=== PATIENT | female | born 1950 | race Caucasian/White ===

== ENCOUNTER 2020-07-06 14:09 | Outpatient (CLI) | payer MEDICARE, SELFPAY ==
--- NOTE | ~2020-07-06 | MM_ITS ---
EXAMINATION: MM screening thao BI w ramandeep HISTORY: Screening mammogram, family history of breast cancer in her mother. TECHNIQUE: Craniocaudal and mediolateral oblique 3-D tomosynthesis images were obtained and synthetic 2-D images were generated. CAD analysis was submitted and interpreted. COMPARISON: No prior mammogram is available for comparison at this institution. BREAST PARENCHYMAL COMPOSITION: The breasts are almost entirely fatty. FINDINGS: RIGHT BREAST: There is focal asymmetry in the upper outer quadrant of the right breast. LEFT BREAST: There is no evidence of suspicious mass, calcification, or architectural distortion to s uggest malignancy. IMPRESSION: 1. Focal asymmetry of the right breast which may represent the patient's baseline however no comparis on is currently available. 2. Comparison with prior mammograms is necessary. BI-RADS Category 0: Incomplete: Needs comparison with prior mammograms. Reviewed, dictated and finalized at location A. CHOOL ASSOCIATE TEACHER IMPRESSION: 1. Focal asymmetry of the right breast which may represent the patient's baseli ne however no comparison is currently available. 2. Comparison with prior mammograms is necessary. BI-RADS Category 0: Incomplete: Needs comparison with prior mammograms.
== END 2020-07-06 14:10 | disposition home or self-care (01) ==
DX: Z12.31 Encounter for screening mammogram for malignant neoplasm of breast (principal); R92.8 Other abnormal and inconclusive findings on diagnostic imaging of breast
CPT/HCPCS: 77063; 77067

== ENCOUNTER 2021-09-28 08:04 | Outpatient (CLI) | payer MEDICARE, SELFPAY ==
--- NOTE | ~2021-09-28 | MM_ITS ---
EXAMINATION: MM screening thao BI w ramandeep HISTORY: Screening mammogram, family history of breast cancer in her mother. TECHNIQUE: Craniocaudal and mediolateral oblique 3-D tomosynthesis images were obtained and synthetic 2-D images were generated. CAD analysis was submitted and interpreted. COMPARISON: 07/06/2020, 03/25/2019 BREAST PARENCHYMAL COMPOSITION: The breasts are almost entirely fatty. FINDINGS: There is no suspicious mass, calcification, or architectural distortion to suggest malignan cy in either breast. There has been no suspicious interval change. IMPRESSION: 1. No mammographic evidence of malignancy. 2. Recommend routine screening mammography in one year. BI-RADS Category 1: Negative Reviewed, dictated and finalized at location A.
== END 2021-09-28 08:05 | disposition home or self-care (01) ==
DX: Z12.31 Encounter for screening mammogram for malignant neoplasm of breast (principal)
CPT/HCPCS: 77063; 77067

== ENCOUNTER 2023-01-02 14:57 | Outpatient (CLI) | payer MEDICARE, SELFPAY ==
--- NOTE | ~2023-01-02 | MR_ITS ---
EXAMINATION: MR lumbar spine wo con DATE: 01/02/2023 16:02 INDICATION: Lumbar radiculopathy. TECHNIQUE: Magnetic resonance imaging (MRI) of the lumbar spine was performed without intravenous con trast. Sequences included sagittal T2-weighted FSE, sagittal T2-weighted FS FSE, sagittal T1-weighted FSE, and axial T2-weighted FSE. COMPARISON: None FINDINGS: There is 7 degrees dextrocurvature of lumbar spine. Vertebral body heights are normal. Ther e is severely decreased disc height at L4-L5. The distal spinal cord signal intensity is normal. The conus medullaris is at L1. The following disc levels are specifically discussed: L1-L2: There is a central protrusion. There is mild left facet joint osteoarthritis. There is no neur al foraminal stenosis. There is mild central canal stenosis. L2-L3: The disc is bulging. There is severe right and moderate left facet joint osteoarthritis. There is mild bilateral neural foraminal stenosis. There is mild central canal stenosis. L3-L4: The disc is bulging. There is severe bilateral facet joint osteoarthritis. There is mild bilat eral neural foraminal stenosis. There is mild central canal stenosis. L4-L5: The disc is bulging and has an annular fissure. There is severe bilateral facet joint osteoart hritis. There is mild bilateral neural foraminal stenosis. There is mild central canal stenosis. L5-S1: The disc is bulging. There is severe bilateral facet joint osteoarthritis. There is mild bilat eral neural foraminal stenosis. There is mild central canal stenosis. IMPRESSION: 1. Severe spondylosis at L4-L5 and mild spondylosis at other levels. Reviewed, dictated and finalized at location A.
--- NOTE | ~2023-01-02 | XR_ITS ---
EXAMINATION: XR orbits min 4V DATE: 01/02/2023 15:39 INDICATION: Indeterminate metallic foreign bodies reportedly at or near the orbit. Assess prior to pl anned MRI TECHNIQUE: 4 views of the orbits including AP, Carlson and left and right oblique views were obtained . COMPARISON: None. FINDINGS: There are plate and screw fixations inferior to the orbits along the medial and lateral diaz of the bilateral maxillary sinuses, potentially for fixation of a prior maxillary realignment osteotomy. Cer clage wire along the left mandibular ramus. Several dental restorations. No radiopaque foreign bodies within the orbits. No fractures identified. Nasal septum is midline. No air-fluid levels in the mast oid air cells or paranasal sinuses. IMPRESSION: 1. Plate and screw fixations along the medial and lateral diaz of the left and right maxillary sinus es and cerclage wire along the left mandibular ramus. Reviewed, dictated and finalized at location A. IMPRESSION: 1. Plate and screw fixations along the medial and lateral diaz of the left and right maxillary sinuses and cerclage wire along the left mandibular ramus.
== END 2023-01-02 14:58 ==
PROVIDERS: Visit Provider Anesthesiology Pain Medicine
DX: M47.26 Other spondylosis with radiculopathy, lumbar region (principal)
CPT/HCPCS: 70200; 72148

== ENCOUNTER 2023-03-14 10:36 | Outpatient (CLI) | payer MEDICARE, SELFPAY ==
--- NOTE | ~2023-03-14 | MM_ITS ---
EXAMINATION: MM screening thao BI w ramandeep HISTORY: Screening mammogram, family history of breast cancer in her mother. TECHNIQUE: Craniocaudal and mediolateral oblique 3-D tomosynthesis images were obtained and synthetic 2-D images were generated. CAD analysis was submitted and interpreted. COMPARISON: 09/28/2021, 07/06/2020, 03/25/2019 BREAST PARENCHYMAL COMPOSITION: There are scattered areas of fibroglandular density. FINDINGS: Chronic focal asymmetry is noted in the anterior third of the upper outer quadrant of the r ight breast. No suspicious mass, calcification, or architectural distortion are identified in either breast to suggest malignancy. There has been no suspicious interval change. IMPRESSION: 1. No mammographic evidence of malignancy. 2. Recommend routine screening mammography in one year. BI-RADS Category 2: Benign finding(s). Reviewed, dictated and finalized at location A.
== END 2023-03-14 10:37 | disposition home or self-care (01) ==
LOC: ANHIMG 10:38
DX: Z12.31 Encounter for screening mammogram for malignant neoplasm of breast (principal)
CPT/HCPCS: 77063; 77067

== ENCOUNTER 2025-03-04 13:58 | Outpatient (CLI) | payer MEDICARE, SELFPAY ==
--- OUTSIDE RECORDS SUMMARY | 2014-08-28 | XMS_ITS | Encounter Summary ---
Author Organization [facility] Healthcare Address [address] [place] [address] Care Team Providers Care Business Analyst Consultant Name Role Phone Eb Cota MD Primary Care Provider [phone] Reason for Visit * Diagnostic Imaging (Routine) - Pending Review Specialty Diagnoses / Procedures Referred By Rachelle hurst Referred To Contact Procedures Breast Imaging Screening Outside Reference Transcribed Order, Provider Referral ID Status Reason Start Date Expiration Date V isits Requested Visits Authorized [id number] Pending Review 08/04/2024 09/03/2025 1 1 Encounter Details Date Type Department Care Team (Late st Contact Info) Description 08/28/2014 Hospital Encounter [facility] [address] [place] [address] Social History Tobacco Use Types Packs/Day Years Used Date Smoking Tobacco: Never Assessed Alcohol Use Standard Drinks/Week Comments No 0 (1 standard drink = 0.6 oz pur e alcohol) Comments Unknown Sex and Gender Information Value Date Recorded Sex Assigned at Not on file Legal Sex Female 9:17 AM SCHOOL COORDINATOR Gender Identity Not on file Sexual Orientation Not on file documented as of this encounter Plan of Treatment Not on file documented as of this encounter Procedures Procedure Name Priority Date/Time Associated Diagnosis Comments BREAST IMAGING MG SCREENING OUTSIDE REFERENCE Routine 08/28/2014 12:00 AM CDT documented in this encounter Results * Breast Imaging Screening Outside Reference (08/28/2014 12:00 AM CDT) Impressions [facility] - 08/04/2024 12:30 PM CDT These images are for Reference purposes only and have not been reviewed by [facility] Radiology. There will be no report generated by a [facility] Radiologist. Narrative [facility] - 08/04/2024 12:30 PM CDT EXAMINATION: Images For Reference Purposes Only us Provider Transcribed Order IMG MAMMO PROCEDURES Final Result [facility] documented in this encounter Visit Diagnoses Not on filedocumented in this encounter Care Teams Business Analyst Consultant Relationship Specialty Start Date End Date Eb Cota MD PCP - General 07/16/06 documented as of this encounter
--- OUTSIDE RECORDS SUMMARY | 2016-01-28 | XMS_ITS | Encounter Summary ---
Author Organization [facility] Healthcare Address [address] [place] [address] Care Team Providers Care Check And Transfer Beader Name Role Phone Eb Cota MD Primary Care Provider [phone] Reason for Visit * Diagnostic Imaging (Routine) - Pending Review Specialty Diagnoses / Procedures Referred By Rachelle hurst Referred To Contact Procedures Breast Imaging Screening Outside Reference Transcribed Order, Provider Referral ID Status Reason Start Date Expiration Date V isits Requested Visits Authorized [id number] Pending Review 08/04/2024 09/03/2025 1 1 Encounter Details Date Type Department Care Team (Late st Contact Info) Description 01/28/2016 Hospital Encounter [facility] [address] [place] [address] Social History Tobacco Use Types Packs/Day Years Used Date Smoking Tobacco: Never Assessed Alcohol Use Standard Drinks/Week Comments No 0 (1 standard drink = 0.6 oz pur e alcohol) Comments Unknown Sex and Gender Information Value Date Recorded Sex Assigned at Not on file Legal Sex Female 9:17 AM TELESALES SUPERVISOR Gender Identity Not on file Sexual Orientation Not on file documented as of this encounter Plan of Treatment Not on file documented as of this encounter Procedures Procedure Name Priority Date/Time Associated Diagnosis Comments BREAST IMAGING MG SCREENING OUTSIDE REFERENCE Routine 01/28/2016 12:00 AM CDT documented in this encounter Results * Breast Imaging Screening Outside Reference (01/28/2016 12:00 AM CDT) Impressions [facility] - 08/04/2024 12:30 PM CDT These images are for Reference purposes only and have not been reviewed by [facility] Radiology. There will be no report generated by a [facility] Radiologist. Narrative [facility] - 08/04/2024 12:30 PM CDT EXAMINATION: Images For Reference Purposes Only us Provider Transcribed Order IMG MAMMO PROCEDURES Final Result [facility] documented in this encounter Visit Diagnoses Not on filedocumented in this encounter Care Teams Check And Transfer Beader Relationship Specialty Start Date End Date Eb Cota MD PCP - General 07/16/06 documented as of this encounter
--- OUTSIDE RECORDS SUMMARY | 2019-03-25 01:00 | XMS_ITS | Encounter Summary ---
Author Organization [facility] Healthcare Address [address] [place] [address] Care Team Providers Care Drywall Installer Name Role Phone Eb oCta MD Primary Care Provider [phone] Reason for Visit * Diagnostic Imaging (Routine) - Pending Review Specialty Diagnoses / Procedures Referred By Rachelle hurst Referred To Contact Procedures Breast Imaging Screening Outside Reference Transcribed Order, Provider Referral ID Status Reason Start Date Expiration Date V isits Requested Visits Authorized [id number] Pending Review 08/04/2024 09/03/2025 1 1 Encounter Details Date Type Department Care Team (Late st Contact Info) Description 03/25/2019 Hospital Encounter [facility]iology [facility] [address] [place] [address] Social History Tobacco Use Types Packs/Day Years Used Date Smoking Tobacco: Never Assessed Alcohol Use Standard Drinks/Week Comments No 0 (1 standard drink = 0.6 oz pur e alcohol) Comments Unknown Sex and Gender Information Value Date Recorded Sex Assigned at Not on file Legal Sex Female 9:17 AM RELOCATION MANAGER Gender Identity Not on file Sexual Orientation Not on file documented as of this encounter Plan of Treatment Not on file documented as of this encounter Procedures Procedure Name Priority Date/Time Associated Diagnosis Comments BREAST IMAGING MG SCREENING OUTSIDE REFERENCE Routine 03/25/2019 12:00 AM RELOCATION MANAGER documented in this encounter Results * Breast Imaging Screening Outside Reference (03/25/2019 12:00 AM RELOCATION MANAGER) Impressions [facility] - 08/04/2024 12:30 PM CDT These images are for Reference purposes only and have not been reviewed by [facility] Radiology. There will be no report generated by a [facility] Radiologist. Narrative [facility] - 08/04/2024 12:30 PM CDT EXAMINATION: Images For Reference Purposes Only us Provider Transcribed Order IMG MAMMO PROCEDURES Final Result [facility] documented in this encounter Visit Diagnoses Not on filedocumented in this encounter Care Teams Drywall Installer Relationship Specialty Start Date End Date Eb Cota MD PCP - General 07/16/06 documented as of this encounter
--- NOTE | ~2025-03-04 | DEXA_ITS ---
Bone Density Report Name: COURTNEY WALTERS Age: 74 Sex: Female Ethnicity: White Date of : 1950 Indication: postmenopausal; screening for osteoporosis; height loss; hysterectomy; rheumatoid arthritis; Referring Provider: UNKNOWN, UNKNOWN Study: Bone densitometry was performed. Exam Date: March 04, 2025 Accession number: [id number] Bone Density: Region BMD T-score Z-score Classification AP Spine(L1-L4) 0.836 -1.9 0.4 Osteopenia Femoral Neck (Left) 0.615 -2.1 -0.1 Osteopenia Total Hip (Left) 0.814 -1.0 0.6 Normal Femoral Neck (Right) 0.669 -1.6 0.4 Osteopenia Total Hip (Right) 0.841 -0.8 0.8 Normal Total Hip Mean 0.828 -0.9 0.7 Normal World Health Organization criteria for BMD impression classify patients as: Normal (T-score at or above -1.0), Osteopenia (T-score between -1.0 and -2.5), or Osteoporosis (T-score at or below -2.5). 10-year Fracture Risk(1): Major Osteoporotic Fracture 16% Hip Fracture 4.0% Reported Risk Factors: [place] (), Neck BMD=0.615, BMI=29.8, rheumatoid arthritis (1) FRAX(R) Version 3.08. Fracture probability calculated for an untreated patient. Fracture probability may be lower if the patient has received treatment. Clinical Information Provided by Patient: Has rheumatoid arthritis Has used the following medications: Vitamin D, Calcium Has the following medical conditions: Hysterectomy Patient maximum height was 64 Menopause Age: 47 No regular weight bearing exercise Drinks caffeinated beverages Onset of menses at age 13 Number of children 2 Impression: The patient has low bone mass, based on the Left Femoral Neck T-score. The patient has an estimated ten-year risk of hip fracture of 4% and an estimated ten-year risk of major fracture of 16%, based on the WHO FRAX algorithm. Discussion: BONE DENSITY IS LOW AT ONE OR MORE SKELETAL SITES. THE PATIENT'S BMD AND CLINICAL RISK FACTORS CONTRIBUTE TO THIS PATIENT'S INCREASED RISK OF FRACTURE. This patient's lowest T-score is low at one or more skeletal sites. It meets the World Health Organization's (WHO) criteria for ?low bone mass? (T-score between -1.0 and -2.5). The patient's 10-year risk of hip fracture as calculated by FRAX exceeds the threshold where pharmacological therapy is recommended by the National Osteoporosis Foundation (NOF). However, all treatment decisions require clinical judgment and consideration of individual patient factors, including patient preferences, comorbidities, previous drug use, risk factors not captured in the FRAX model (e.g., frailty, falls, vitamin D deficiency, increased bone turnover, interval significant decline in bone density) and possible under or overestimation of fracture risk by FRAX. The patient should follow a healthful lifestyle (good nutrition with adequate calcium and vitamin D, and appropriate weight-bearing exercise). Follow-Up: Consider a repeat BMD and Vertebral Fracture Assessment (VFA) exam in 2 years or sooner if medically necessary, to reassess this patient's status. Reported by: CÉSAR on 03/04/2025 2:48:00 PM. Reviewed, dictated and finalized at location A.
--- OUTSIDE RECORDS SUMMARY | 2025-03-04 18:13 | XMS_ITS | Encounter Summary ---
Author Organization [facility] Address [address] [facility] [place] [address] Care Team Providers Care Exhibit Cleaner Name Role Phone Eb Cota MD Primary Care Provider Fran Cartagena MD Unavailable [phone] Eb Cota MD Unavailable [phone] Eb Cota MD Unavailable [phone] Eb Cota MD Unavailable [phone] Eb Cota MD Unavailable [phone] Lyubov Diehl MA Unavailable [phone] Priscilla Holman MA Unavailable [phone] Priscilla Holman MA Unavailable [phone] Sintia Luna MD Unavailable [phone] Reason for Visit * Reason Onset Date Comments MEDICATION REFILL 02/04/2023 Encounter Details Date Type Department Care Team (Late st Contact Info) Description 02/04/2023 Refill [facility] - Internal Medicine [address] [place] [id number] Eb Cota MD [address] [facility] [address] [place] [address] MEDICATION REFILL Social History Tobacco Use Types Packs/Day Years Used Date Smoking Tobacco: Never Smokeless Tobacco: Never Alcohol Use Standard Drinks/Week Comments Yes 0 (1 standard drink = 0.6 oz pur e alcohol) Once a year, maybe PHQ-2 Answer Date Recorded PHQ2 TOTAL SCORE 0 06/08/2022 Comments No Sex and Gender Information Value Date Recorded Sex Assigned at Female 05/13/2020 3:06 AM BULL WHEEL WORKER Legal Sex Female 3:23 PM BULL WHEEL WORKER Gender Identity Female 03/11/2019 2:02 PM CDT Sexual Orientation Straight 05/13/2020 3: 06 AM BULL WHEEL WORKER documented as of this encounter Miscellaneous Notes * Telephone Encounter - Fanny Perez - 02/06/2023 12:47 PM CDT [facility] sent 02/06 in regards to scheduling MWV. * Telephone Encounter - Annalisa Domínguez RN - 02/06/2023 11:20 AM CDT PLEASE READ NOTE BELOW --------- Patient sent refill request with, Patient Comment: I realize I am overdue for my wellness visit. Kely to schedule around his appts. 2 new ones JAKE. A transitional living specialist and hemotologist/oncologist. Can I please refill this one more time? --------- CONTROLLED MEDICATION REFILL REQUEST Medication: Requested Prescriptions Pending Prescriptions Disp Refills ??? zolpidem (Ambien) 5 MG tablet 30 tablet 3 Sig: Take 1 (one) tablet by mouth nightly as needed for Insomnia Last Office Visit with PCP: 06/08/2022 Last Video Visit with PCP: 07/18/2021 Next Appointment with PCP: Visit date not found Follow-up: 6 months Date of last refill: 10/13/22 --------- Note: Patient canceled 01/11/23 appointment. Note: Scheduling team sent [employer] message 01/17/23 to schedule OV. Message has been read. --------- Scheduling Team: Please schedule patient for an appointment with Eb Cota MD for chronic condition and medication management. Patient was due for 6 month follow up around 12/06/22. documented in this encounter Plan of Treatment Upcoming Encounters Date Type Department Care Team (Late st Contact Info) Description 10/06/2025 1:00 PM CDT Office Visit [facility] - Internal Medicine [address] [place] [id number] Eb Cota MD [address] [place] [id number] documented as of this encounter Goals Goal Patient Goal Type Associated Problems Recent Progress Patient-Stated? Author Exercise 5X per week (30 min per time) Exercise No Eb Cota MD documented as of this encounter Visit Diagnoses Diagnosis Insomnia, unspecified type documented in this encounter Care Teams Exhibit Cleaner Relationship Specialty Start Date End Date Eb Cota MD [address] [facility] [address] [place] [address] PCP - General Internal Medicine 06/12/13 Eb Cota MD [facility] [address] [place] [address] PCP - Attributed-[facility] 06/14/2104/30 Eb Cota MD [address] [facility] [address] [place] [address] PCP - Attributed-[facility] 07/13/23 Eb Cota MD [facility] [address] [place] [id number] PCP - Attributed-[facility] 08/13/23 Eb Cota MD [address] [facility] [address] [place] [address] PCP - Attributed-[facility] ST P4P 08/13/23 10/24/23 Fran Cartagena MD [address] [facility] [address] [place] [address] Orthopedic 03/25/19 Lyubov Diehl MA Care Coordination Specialist Care Management 12/05/23 01/19/24 Priscilla Holman MA Care Coordination Specialist 03/26/24 05/10/24 Priscilla Holman MA Care Coordination Specialist 06/19/24 08/03/24 Sintia Luna MD [address] [place] [address] Pain Management Pain Medicine 09/23/24 documented as of this encounter
--- OUTSIDE RECORDS SUMMARY | 2025-03-04 18:13 | XMS_ITS | Encounter Summary ---
Author Organization [facility] Address [address] [place] [address] Care Team Providers Care Geologic Technician Name Role Phone Eb Cota MD Primary Care Provider [phone] Eb Cota MD Unavailable Fran Cartagena MD Unavailable [phone] Eb Cota MD Unavailable Eb Cota MD Unavailable [phone] Eb Cota MD Unavailable [phone] Eb Cota MD Unavailable Lyubov Diehl MA Unavailable [phone] Priscilla Holman MA Unavailable [phone] Eb Cota MD Unavailable [phone] Malathi Stevens SERVICE GIRL-PHOTONIC LABORATORY TECHNICIAN Unavailable [phone] Naomy Munoz SERVICE GIRL-PHOTONIC LABORATORY TECHNICIAN Unavailable [phone] Priscilla Holman MA Unavailable [phone] Sintia Luna MD Unavailable [phone] Reason for Visit * Reason Onset Date Comments MEDICATION REFILL 10/14/2013 Encounter Details Date Type Department Care Team (Latest Contact Info) Description 10/14/2013 Refill TEST MEDICATION REFILL Social History Tobacco Use Types Packs/Day Years Used Date Smoking Tobacco: Never Smokeless Tobacco: Never Alcohol Use Standard Drinks/Week Comments Yes 0 (1 standard drink = 0.6 oz pur e alcohol) Once a year, maybe Comments No Sex and Gender Information Value Date Recorded Sex Assigned at Female 05/13/2020 3:06 AM RISK AND COMPLIANCE ANALYTICS DIRECTOR Legal Sex Female 3:23 PM RISK AND COMPLIANCE ANALYTICS DIRECTOR Gender Identity Female 03/11/2019 2:02 PM CDT Sexual Orientation Straight 05/13/2020 3: 06 AM RISK AND COMPLIANCE ANALYTICS DIRECTOR documented as of this encounter Plan of Treatment Upcoming Encounters Date Type Department Care Team (Late st Contact Info) Description 10/06/2025 1:00 PM CDT Office Visit [facility] - Internal Medicine [address] [place] [address] [id number] Eb Cota MD [address] [place] [phone] documented as of this encounter Goals Goal Patient Goal Type Associated Problems Recent Progress Patient-Stated? Author Exercise 5X per week (30 min per time) Exercise No Eb Cota MD documented as of this encounter Visit Diagnoses Not on filedocumented in this encounter Care Teams Geologic Technician Relationship Specialty Start Date End Date Eb Cota MD [address] [place] [address] [address] [place] [phone] PCP - General Internal Medicine 06/12/13 Eb Cota MD [address] [place] [address] [address] [place] [phone] PCP - Attributed-[facility] 10/12/18 11/15/20 Eb Cota MD [address] [place] [address] [address] [place] [phone] PCP - Attributed-[facility] MA 06/14/2104/30 Eb Cota MD [address] [facility] [address] [place] [phone] PCP - Attributed-C [place] 07/13/[place] [address] [place] [address] [address] [place] [phone] PCP - Attributed-[facility] 08/13/23 Eb Cota MD [address] [place] [address] [address] [place] [phone] PCP - Attributed-[facility] P4P 08/13/23 10/24/23 Eb Cota MD [address] [place] [address] [address] [place] [phone] PCP - Attributed-[facility] 10/18/16 11/22/17 Malathi Stevens SERVICE GIRL-PHOTONIC LABORATORY TECHNICIAN [address] [place] [address] PCP - Attributed-[facility] 11/23/17 12/11/17 Naomy Munoz SERVICE GIRL-PHOTONIC LABORATORY TECHNICIAN [address] [place] [address] PCP - Attributed-[facility] 12/12/17 10/11/18 Fran Cartagena MD [address] [facility] [address] [place] [address] Orthopedic 03/25/19 Lyubov Diehl MA Care Coordination Specialist Care Management 12/05/23 01/19/24 Priscilla Holman MA Care Coordination Specialist 03/26/24 05/10/24 Priscilla Holman MA Care Coordination Specialist 06/19/24 08/03/24 Sintia Luna MD [address] [place] [address] Pain Management Pain Medicine 09/23/24 documented as of this encounter
--- OUTSIDE RECORDS SUMMARY | 2025-03-04 18:13 | XMS_ITS | Encounter Summary ---
Author Organization [facility] Address [address] [facility] [place] [address] Care Team Providers Care Quality Rn Name Role Phone Eb Cota MD Primary Care Provider [phone] Fran Cartagena MD Unavailable [phone] Eb Cota MD Unavailable [phone] Sintia Luna MD Unavailable [phone] Reason for Visit * Reason Onset Date Comments MEDICATION REFILL 03/03/2025 Encounter Details Date Type Department Care Team (Late st Contact Info) Description 03/03/2025 Refill [facility] Medical [facility] - Internal Medicine [address] [place] [address] Eb Cota MD [address] [place] [id number] MEDICATION REFILL Social History Tobacco Use Types Packs/Day Years Used Date Smoking Tobacco: Never Smokeless Tobacco: Never Alcohol Use Standard Drinks/Week Comments Yes 0 (1 standard drink = 0.6 oz pur e alcohol) Once a year, maybe PHQ-2 Answer Date Recorded Patient Health Questionnaire-2 Score 2 09/22/2024 Comments No Sex and Gender Information Value Date Recorded Sex Assigned at Female 05/13/2020 3:06 AM COORDINATOR OF ONLINE PROGRAMS Legal Sex Female 3:23 PM COORDINATOR OF ONLINE PROGRAMS Gender Identity Female 03/11/2019 2:02 PM CDT Sexual Orientation Straight 05/13/2020 3: 06 AM COORDINATOR OF ONLINE PROGRAMS documented as of this encounter Miscellaneous Notes * Telephone Encounter - Annalisa Domínguez RN - 03/04/2025 2:35 PM CDT CONTROLLED MEDICATION REFILL REQUEST Medication: Requested Prescriptions Pending Prescriptions Disp Refills HYDROcodone-acetaminophen ([place]) 5-325 MG tablet 30 tablet 0 Sig: Take 1 (one) tablet by mouth 2 times daily Last Office Visit with PCP: 09/23/2024 Last Video Visit with PCP: 10/16/2023 Next Appointment with PCP: 10/06/2025 Follow-up: 12 months Date of last refill: 02/16/25 documented in this encounter Plan of Treatment Upcoming Encounters Date Type Department Care Team (Late st Contact Info) Description 10/06/2025 1:00 PM CDT Office Visit [facility] - Internal Medicine [address] [place] [address] Eb Cota MD [address] [place] [id number] documented as of this encounter Goals Goal Patient Goal Type Associated Problems Recent Progress Patient-Stated? Author Exercise 5X per week (30 min per time) Exercise No Eb Cota MD documented as of this encounter Visit Diagnoses Diagnosis Chronic midline low back pain without sciatica documented in this encounter Care Teams Quality Rn Relationship Specialty Start Date End Date Eb Cota MD [address] [place] [phone] PCP - General Internal Medicine 06/12/13 Eb Cota MD [address] [place] [address], [place] [address] PCP - Attributed-[facility] 08/13/23 Fran Cartagena MD [address] [place] [address] Orthopedic 03/25/19 Sintia Luna MD [address] [place] [address] Pain Management Pain Medicine 09/23/24 documented as of this encounter
--- OUTSIDE RECORDS SUMMARY | 2025-03-04 18:13 | XMS_ITS | Encounter Summary ---
Author Organization [facility] Address [address] [facility] [place] [address] Care Team Providers Care Canning Machine Operator Name Role Phone Eb Cota MD Primary Care Provider Fran Cartagena MD Unavailable [phone] Eb Cota MD Unavailable [phone] Eb Cota MD Unavailable [phone] Lyubov Diehl MA Unavailable [phone] Priscilla Holman MA Unavailable [phone] Priscilla Holman MA Unavailable [phone] Sintia Luna MD Unavailable [phone] Reason for Visit * Reason Onset Date Comments MEDICATION REFILL 09/25/2023 Encounter Details Date Type Department Care Team (Late st Contact Info) Description 09/25/2023 Refill [facility] - Internal Medicine [address] [address] Eb Cota MD [address] [place] [phone] MEDICATION REFILL Social History Tobacco Use Types Packs/Day Years Used Date Smoking Tobacco: Never Smokeless Tobacco: Never Alcohol Use Standard Drinks/Week Comments Yes 0 (1 standard drink = 0.6 oz pur e alcohol) Once a year, maybe PHQ-2 Answer Date Recorded Patient Health Questionnaire-2 Score 0 03/27/2023 Comments No Sex and Gender Information Value Date Recorded Sex Assigned at Female 05/13/2020 3:06 AM SHIPPING SUPPORT CLERK Legal Sex Female 3:23 PM SHIPPING SUPPORT CLERK Gender Identity Female 03/11/2019 2:02 PM CDT Sexual Orientation Straight 05/13/2020 3: 06 AM SHIPPING SUPPORT CLERK documented as of this encounter Miscellaneous Notes * Telephone Encounter - Annalisa Domínguez RN - 09/25/2023 1:11 PM CDT PLEASE READ NOTE BELOW --------- Patient sent refill request with, Patient Comment: Today my video with Dr. Quiñones was cancelled at the last minute for the SECOND time. Daughter took a day off again so she could help me with Zoom and take care of her dad during my visit. I don't know when I can reschedule yet. 2 weeks of appts with hemotologist, neurologist, dentist for both of us, eye An appt with Gopal for benefits we have to keep! My grandson, just out of the [employer] is taking us to [place] until he starts a new job. I have only 3 capsules of this med left! --------- CONTROLLED MEDICATION REFILL REQUEST Medication: Requested Prescriptions Pending Prescriptions Disp Refills amphetamine-dextroamphetamine XR 24hr (Adderall XR) 15 MG capsule 30 capsule 0 Sig: Take 1 (one) capsule by mouth once daily Last Office Visit with PCP: 06/08/2022 04/10/23 RAUL Arredondo Last Video Visit with PCP: 07/18/2021 Next Appointment with PCP: Visit date not found Follow-up: 6 months 6 months Date of last refill: 08/20/23 --------- Note: Provider office canceled 09/25/23, 09/17/23 appointment. Patient No Show 09/10/23 appointment. CausePlay message sent to patient at this time to schedule appointment. documented in this encounter Plan of Treatment Upcoming Encounters Date Type Department Care Team (Late st Contact Info) Description 10/06/2025 1:00 PM CDT Office Visit [facility] - Internal Medicine [address] [place] [address] Eb Cota MD [address] [place] [phone] documented as of this encounter Goals Goal Patient Goal Type Associated Problems Recent Progress Patient-Stated? Author Exercise 5X per week (30 min per time) Exercise No Eb Cota MD documented as of this encounter Visit Diagnoses Diagnosis Attention deficit hyperactivity disorder (ADHD), unspecified ADHD type documented in this encounter Care Teams Canning Machine Operator Relationship Specialty Start Date End Date Eb Cota MD [address] [place] [phone] PCP - General Internal Medicine 06/12/13 Eb Cota MD [address] [facility] [address] [place] [address] PCP - Attributed-[facility] JAIME 08/13/23 Eb Cota MD [address] [facility] [address] [place] [address] PCP - Attributed-[facility] P[facility] 08/13/23 10/24/23 Fran Cartagena MD [address] [place] [address] Orthopedic 03/25/19 Lyubov Diehl MA Care Coordination Specialist Care Management 12/05/23 01/19/24 Priscilla Holman MA Care Coordination Specialist 03/26/24 05/10/24 Priscilla Holman MA Care Coordination Specialist 06/19/24 08/03/24 Sintia Luna MD 1 [place] [address] Pain Management Pain Medicine 09/23/24 documented as of this encounter
--- OUTSIDE RECORDS SUMMARY | 2025-03-04 18:13 | XMS_ITS | Encounter Summary ---
Author Organization [facility] Address [address] [facility] [place] [address] Care Team Providers Care Warp Tension Tester Name Role Phone Eb Cota MD Primary Care Provider Fran Cartagena MD Unavailable [phone] Eb Cota MD Unavailable [phone] Sintia Luna MD Unavailable [phone] Encounter Details Date Type Department Care Team (Late st Contact Info) Description 01/17/2025 Results Follow-Up [facility] - Internal Medicine [address] [place] [address] Eb Cota MD [address] [place] [address] [address] [place] [address] Social History Tobacco Use Types Packs/Day Years Used Date Smoking Tobacco: Never Smokeless Tobacco: Never Alcohol Use Standard Drinks/Week Comments Yes 0 (1 standard drink = 0.6 oz pur e alcohol) Once a year, maybe PHQ-2 Answer Date Recorded Patient Health Questionnaire-2 Score 2 09/22/2024 Comments No Sex and Gender Information Value Date Recorded Sex Assigned at Female 05/13/2020 3:06 AM FLOUR BLENDER Legal Sex Female 3:23 PM FLOUR BLENDER Gender Identity Female 03/11/2019 2:02 PM CDT Sexual Orientation Straight 05/13/2020 3: 06 AM FLOUR BLENDER documented as of this encounter Plan of Treatment Upcoming Encounters Date Type Department Care Team (Late st Contact Info) Description 10/06/2025 1:00 PM CDT Office Visit [facility] - Internal Medicine [address] [facility] [address] [place], [place] [id number] Eb Cota MD [address] [place] [address] [address] [place] [address] documented as of this encounter Goals Goal Patient Goal Type Associated Problems Recent Progress Patient-Stated? Author Exercise 5X per week (30 min per time) Exercise No Eb Cota MD documented as of this encounter Visit Diagnoses Not on filedocumented in this encounter Care Teams Warp Tension Tester Relationship Specialty Start Date End Date Eb Cota MD [address] [place] [address] [address] [place] [address] PCP - General Internal Medicine 06/12/13 Eb Cota MD [address] [place] [address] [address] [place] [address] PCP - Attributed-[facility] 08/13/23 Fran Cartagena MD [address] [facility] [address] [place] [address] Orthopedic 03/25/19 Sintia Luna MD [address] [place] [address] Pain Management Pain Medicine 09/23/24 documented as of this encounter
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
--- OUTSIDE RECORDS SUMMARY | 2025-03-04 18:14 | XMS_ITS | Clinical Summary ---
Author Organization [facility] Address [address] [place] [address] Phone Care Team Providers Care Microsoft Infrastructure Consultant Name Role Phone Eb Cota MD Primary Care Provider [phone] Allergies Active Allergy Reactions Criticality Noted Date Comments Meperidine Other (see Comments) 08/04/2022 BP DROPS Medications AMPHETAMINE-DEX TROAMPHETAMINE PO Take 15 mg by mouth daily. EXTENDED RELEASE Active HYDROcodone-gisele taminophen (NORCO) 5-325 MG Tablet Take 1 Tablet by mouth every 6 hours as needed. Active DULoxetine (CYMBALTA) [address] Particles Take 20 mg by mouth every evening. Active zolpidem (AMBIEN) 5 MG Tablet Take 5 mg by mouth nightly as needed. Active Multiple Vitamins-Minera ls (WOMENS 50+ MULTI VITAMIN/MIN PO) Take 1 Tablet by mouth daily. Active Calcium Carb-Cholecalci ferol (CALCIUM+D3 PO) Take 2 Tablets by mouth daily. Active Fexofenadine HCl (LUCINA PO) Take 1 Tablet by mouth daily as needed. Active Fluticasone Propionate (FLONASE NA) 1 [place] by Nasal route daily as needed. Active Family History Medical History Relation Name Comments Cancer Father skin Cancer Mother breast Relation Name Status Comments Father Mother Alive Social History Tobacco Use Types Packs/Day Years Used Date Smoking Tobacco: Former Cigarettes Q uit: 1977 Smokeless Tobacco: Never Alcohol Use Standard Drinks/Week Comments Not Currently 0 (1 standard drink = 0.6 oz pur e alcohol) Comments Unknown Sex and Gender Information Value Date Recorded Sex Assigned at Female 06/25/2023 2:47 PM TRUSS MAKER Legal Sex Female 11:25 PM CDT Gender Identity Female 06/25/2023 2:47 PM TRUSS MAKER Sexual Orientation Straight 06/25/2023 2: 47 PM TRUSS MAKER Last Filed Vital Signs Vital Sign Reading Time Taken Comments Blood Pressure 115/71 10/02/2022 8:25 AM CDT Pulse 84 10/02/2022 8:25 AM CDT Temperature 36.4 C (97.5 F) 10/02/2022 8:25 AM CDT Respiratory Rate 14 10/02/2022 8:25 AM CDT Oxygen Saturation 98% 10/02/2022 8:25 AM CDT Inhaled Oxygen Concentration - - Weight 78.5 kg (173 lb) 09/27/2022 10:53 AM CDT Height 160 cm (5' 3) 09/27/2022 10:53 AM CDT Body Mass Index 30.65 09/27/2022 10:53 AM CDT Plan of Treatment Health Maintenance Due Date Last Done Comments Hepatitis C Virus (HCV) Screening 1950 Cologuard 12/10/1996 Colonoscopy 12/10/1996 Colorectal Cancer Screening 12/10/1996 Immunochemical Fecal Occult Blood 12/10/1996 Zoster Immunization (1 of 2) 12/10/2001 Medicare Initial AWV [id number] 05/14/2023 Influenza Immunization (#1) 01/12/202505/15, 02/16/2021, 02/16/2021, Additional history exists SARS-COV-2 Immunization ( season) 2025 07/08/2021, 08/17/2020, 06/30/2020 Respiratory Syncytial Virus (RSV) Immunization (Adult) (1 - 1-dose 75+ series) 12/10/2026 DTaP/Tdap/Td Immunization Discontinued 06/05/2011, 05/2010 TdaP Immunization Completed 06/05/2011, 05/14/2010 Mammogram Discontinued 01/28/2016 DEXA Bone Density Discontinued 03/25/2019 Pneumococcal Immunization (50+ years) Completed 06/08/2022, 07/20/2016, 07/01/2015 Hepatitis B Immunization Aged Out No longer eligible based on patient's age to complete this topic Human Papillomavirus (HPV) Immunization Aged Out No longer eligible based on patient's age to complete this topic Meningococcal Immunization (ACWY) Aged Out No longer eligible based on patient's age to complete this topic Rotavirus Immunization Aged Out No lo nger eligible based on patient's age to complete this topic Medical Devices Implanted Type Area Metal Polisher And Buffer Apprentice Device Identifier Shelf Expiration Date Model / Serial / Lot Technis 1-Piece Iol With Simplicity Delivery System Implanted:Qty: 1 on 08/07/2022 by David Capone MD at [facility] Left: Eye 07/09/2025 [id number] / [id number] / [id number] Technis 1-Piece Iol With Simplicity Delivery System Implanted:Qty: 1 on 10/02/2022 by David Capone MD at [facility] Right: Eye 04/07/2029 [id number] / [id number] / [id number] Insurance MEDICARE [facility] Advance Directives Documents on File Type Date Recorded Patient Apprentice Painter Brush Expl anation Power of Physical Therapy Instructor for Health Care 10/02/2022 1:25 PM POA-, 08/03/2022 Care Teams Microsoft Infrastructure Consultant Relationship Specialty Start Date End Date Eb Cota MD [address] [address] PCP - General Internal Medicine 08/07/22
--- OUTSIDE RECORDS SUMMARY | 2025-03-04 18:14 | XMS_ITS | Encounter Summary ---
Author Organization [facility] Address [address] [place] [address] Care Team Providers Care Keg Washer Name Role Phone Eb Cota MD Primary Care Provider Fran Cartagena MD Unavailable [phone] Eb Cota MD Unavailable [phone] Eb Cota MD Unavailable [phone] Eb Cota MD Unavailable [phone] Lyubov Diehl MA Unavailable [phone] Priscilla Holman MA Unavailable [phone] Priscilla Holman MA Unavailable [phone] Sintia Luna MD Unavailable [phone] Reason for Visit * Reason Onset Date Comments MEDICATION REFILL 08/02/2023 Encounter Details Date Type Department Care Team (Late st Contact Info) Description 08/02/2023 Refill [facility] - Internal Medicine [address] [address] Eb Cota MD [address] [place] [address] [address] [place] [address] MEDICATION REFILL Social History Tobacco Use Types Packs/Day Years Used Date Smoking Tobacco: Never Smokeless Tobacco: Never Alcohol Use Standard Drinks/Week Comments Yes 0 (1 standard drink = 0.6 oz pur e alcohol) Once a year, maybe PHQ-2 Answer Date Recorded Patient Health Questionnaire-2 Score 0 03/27/2023 Comments No Sex and Gender Information Value Date Recorded Sex Assigned at Female 05/13/2020 3:06 AM REFINER OPERATOR Legal Sex Female 3:23 PM REFINER OPERATOR Gender Identity Female 03/11/2019 2:02 PM CDT Sexual Orientation Straight 05/13/2020 3: 06 AM REFINER OPERATOR documented as of this encounter Miscellaneous Notes * Telephone Encounter - Eb Cota MD - 08/07/2023 11:20 AM CDT sent * Telephone Encounter - Kinjal Correa MA - 08/07/2023 10:28 AM CDT Patient has a 6 mo follow up scheduled for 09/10/2023. Patient had a fall and landed on her knee a couple weeks ago so she was taking a little more than she usually did of her pain medication. Can she get a refill now? * Telephone Encounter - Annalisa Domínguez RN - 08/03/2023 3:05 PM CDT CONTROLLED MEDICATION REFILL REQUEST Medication: Requested Prescriptions Pending Prescriptions Disp Refills ??? HYDROcodone-acetaminophen ([place]) 5-325 MG tablet 30 tablet 0 Sig: Take 1 (one) tablet by mouth 2 times daily Last Office Visit with PCP: 06/08/2022?? 04/10/23 RAUL Arredondo Last Video Visit with PCP: 07/18/2021 Next Appointment with PCP: Visit date not found Follow-up: 6 months?? 6 months Date of last refill: 07/18/23 documented in this encounter Plan of Treatment Upcoming Encounters Date Type Department Care Team (Late st Contact Info) Description 10/06/2025 1:00 PM CDT Office Visit [facility] - Internal Medicine [address] [facility] [address] [place], [place] [id number] Eb Cota MD [address] [place] [address] [address] [place] [address] documented as of this encounter Goals Goal Patient Goal Type Associated Problems Recent Progress Patient-Stated? Author Exercise 5X per week (30 min per time) Exercise No Eb Cota MD documented as of this encounter Visit Diagnoses Diagnosis Chronic midline low back pain without sciatica documented in this encounter Care Teams Keg Washer Relationship Specialty Start Date End Date Eb Cota MD [address] [place] [address] [address] [place] [address] PCP - General Internal Medicine 06/12/13 Eb Cota MD [address] [place] [address] [address] [place] [address] PCP - Attributed-[facility] 07/13/23 Eb Cota MD [address] [place] [address] [address] [place] [address] PCP - Attributed-[facility] 08/13/23 Eb Cota MD [address] [place] [address] [address] [place] [address] PCP - Attributed-[facility] ST P4P 08/13/23 10/24/23 Fran Cartagena MD [address] [place] [address] Orthopedic 03/25/19 Lyubov Diehl MA Care Coordination Specialist Care Management 12/05/23 01/19/24 Priscilla Holman MA Care Coordination Specialist 03/26/24 05/10/24 Priscilla Holman MA Care Coordination Specialist 06/19/24 08/03/24 Sintia Luna MD 1 [place] [address] Pain Management Pain Medicine 09/23/24 documented as of this encounter
--- OUTSIDE RECORDS SUMMARY | 2025-03-04 18:14 | XMS_ITS | Clinical Summary ---
Author Organization [facility] Building [address] Address [address] [place] [address] Care Team Providers Care Chair Pad Maker Name Role Phone Eb Cota MD Primary Care Provider [phone] Allergies Active Allergy Reactions Criticality Noted Date Comments Meperidine Other (See comments),Hypotension High Reaction: Other, , Reaction: Hypotension, Shellfish Containing Products Hives High Reaction: Hives, Medications ondansetron (ZOFRAN) 4 mg tablet Take 1 tablet (4 mg total) by mouth every 8 (eight) hours as needed for nausea or vomiting 15 tablet 01/10/2022 Active dextroamphetami ne-amphetamine (ADDERALL) 20 mg tablet 20 mg Active Active Problems Problem Noted Date Diagnosed Date Family history of colon cancer 09/27/2021 Overview (09/27/2021): Added automatically from request for surgery [id number] Personal history of colonic polyps 09/27/2021 Overview (09/27/2021): Added automatically from request for surgery [id number] Encounter for screening colonoscopy 09/27/2021 Overview (09/27/2021): Added automatically from request for surgery [id number] Low back pain 03/28/2013 Overview (08/18/2016): LUMBAGO Anxiety state 03/28/2013 Overview (08/19/2016): ANXIETY STATE NOS Immunizations Immunization Administration Dates Next Due Influenza, Split 02/18/2010 Influenza, Trivalent, Split, Preservative Free, Intradermal 03/28/2013,04/12/2012 Tdap 06/05/2011 Surgical History Surgery Date Site/Laterality Comments KNEE ARTHROPLASTY 2012 Knee replacement COLONOSCOPY 08/12/2010 - 09/10/2010 Medical History Medical History Date Comments Anxiety disorder Anxiety Hx Other Medical R rotator cuff tear Hx Other Medical L4-5 hnp Family History Medical History Relation Name Comments Breast cancer Other Family history of Cancer -breast; Diabetes type II Other Family hist ory of Diabetes -Type II; Ovarian cancer Other Family histor y of Cancer -ovarian; Relation Name Status Comments Other Social History Tobacco Use Types Packs/Day Years Used Date Smoking Tobacco: Never Assessed Alcohol Use Standard Drinks/Week Comments No 0 (1 standard drink = 0.6 oz pur e alcohol) Comments Unknown Sex and Gender Information Value Date Recorded Sex Assigned at Not on file Legal Sex 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 Gender Identity Not on file Sexual Orientation Not on file Obstetrics History Last Filed Vital Signs Vital Sign Reading Time Taken Comments Blood Pressure 140/83 01/11/2022 9:04 AM CDT Pulse 63 01/11/2022 9:04 AM CDT Temperature 36.3 C (97.3 F) 01/11/2022 9:04 AM CDT Respiratory Rate 18 01/11/2022 9:04 AM CDT Oxygen Saturation 99% 01/11/2022 9:04 AM CDT Inhaled Oxygen Concentration - - Weight 79 kg (174 lb 2.6 oz) 01/11/2022 7:26 AM CDT Height 162.6 cm (5' 4) 03/28/2013 11:42 AM PATTERN WHEEL MAKER Body Mass Index 29.9 03/28/2013 11:42 AM PATTERN WHEEL MAKER Plan of Treatment Health Maintenance Due Date Last Done Comments Depression Screening 1950 Fall Risk Assessment 1950 Hepatitis C Screening 1950 Hepatitis B Screening 12/10/1969 Zoster Vaccine (1 of 2) 12/10/2001 Well Visit 65+ 12/10/2016 Osteoporosis Screening-Bone Density Scan 03/25/2021 03/25/2019, 03/25/2019 DTaP/Tdap/Td Vaccine (3 - Td or Tdap) 06/05/2021 06/05/2011, 05/14/2010 Covid-19 Vaccine (4 - 2024-2 6 season) 2025 07/08/2021, 08/17/2020, 06/30/2020 Influenza Vaccine (#1) 2025 , 03/27/2023, 06/08/2022, Additional history exists Breast Cancer Screening-Mammogram 07/19/2025 07/19/2024, 07/19/2024, 07/19/2024, Additional history exists Colon Cancer Screening-Colonoscopy 01/12/20322021, 08/24/2010 Pneumococcal vaccine 65+ Completed 023, 07/20/2016, 07/01/2015 Procedures Procedure Name Priority Date/Time Associated Diagnosis Comments SCREENING MAMMOGRAM BILATERAL W ZOHAIB Schedule Routine, Read Routine (OP Routine) 07/19/2024 10:13 AM PATTERN WHEEL MAKER Screening mammogram, encounter for COLONOSCOPY 01/11/2022 7:27 AM CDT from Last 3 Months or Most Recently Relevant to Health Maintenance Results * Screening Mammogram Bilateral W Zohaib (07/19/2024 10:13 AM PATTERN WHEEL MAKER) Anatomical Region Laterality Modality Breast Bilateral Mammography Narrative 07/21/2024 12:18 PM CDT Mammogram Technique: Bilateral Digital Breast Tomosynthesis, Bilateral C-view 2D Screening mammogram. Views obtained: bilateral craniocaudal and bilateral mediolateral oblique. Computer Aided Detection was performed. Mammogram Findings: The present examination has been compared to prior imaging studies performed at [facility], [place], [place] on 10/04/2009, 06/16/2011 and 11/11/2012. There are scattered areas of fibroglandular density. There is no suspicious abnormality in either breast. Impression: There is no mammographic evidence of malignancy. Annual screening mammography is recommended. OVERALL FINAL ASSESSMENT: BI-RADS CATEGORY 1: Negative. Procedure Note Julia Mai MD - 07/21/2024 Mammogram Technique: Bilateral Digital Breast Tomosynthesis, Bilateral C-view 2D Screening mammogram. Views obtained: bilateral craniocaudal and bilateral mediolateral oblique. Computer Aided Detection was performed. Mammogram Findings: The present examination has been compared to prior imaging studies performed at [facility], [place], [place] on 10/04/2009, 06/16/2011 and 11/11/2012. There are scattered areas of fibroglandular density. There is no suspicious abnormality in either breast. Impression: There is no mammographic evidence of malignancy. Annual screening mammography is recommended. OVERALL FINAL ASSESSMENT: BI-RADS CATEGORY 1: Negative. us Self Screening Mammogram IMG MAMMO PROCEDURES Fi nal Result * COLONOSCOPY (01/11/2022 7:27 AM CDT) Anatomical Region Laterality Modality Other Narrative Procedure Note Alissa Moses MD - 01/11/2022 7:27 AM CDT [facility] Patient Name: Berenice Smith Procedure Date: 01/11/2022 7:27 AM Date of : 1950 Admit Type: Outpatient Age: 71 Gender: Female Attending MD: Alissa Moses M.D. Room: [facility] ROOM 1 Note Status: Finalized Patient Profile: This is a 71 year old female. Grandfather had colon cancer. No specific GI complaint. Screening colonoscopy. Procedure: Colonoscopy Indications: Screening for colon cancer: Family history of colorectal cancer in distant relative(s), Last colonoscopy: August 2010 Referring MD: Eb Cota M.D. Providers: Alissa Moses M.D. Impression: - One 4 mm polyp in the proximal ascending colon, removed with a jumbo cold forceps. Resected and retrieved. - Diverticulosis in the sigmoid colon. - Internal hemorrhoids. Recommendation: - Await pathology results. - Repeat colonoscopy in 5-10 years for screening purposes. - Continue present medications. Medicines: Monitored Anesthesia Care Complications: No immediate complications. Estimated Blood Loss: Estimated blood loss: none. Procedure: Pre-Anesthesia Assessment: - Prior to the procedure, a History and Physicalwas performed, and patient medications and allergieswere reviewed. The patient's tolerance of previous anesthesia was also reviewed. The risks andbenefits of the procedure and the sedation options and risks were discussed with the patient. All questions were answered, and informed consent was obtained. Prior Anticoagulants: The patient has taken noanticoagulant or antiplatelet agents. ASA Grade Assessment: II -A patient with mild systemic disease. After reviewing the risks and benefits, the patient was deemed in satisfactory condition to undergo the procedure. The benefits, risks and alternatives of theprocedure and sedation were discussed and informed consentwas obtained. All questions were answered. Please referto the signed informed consent document in the medical record. The bowel preparation used was Miralax via split dose instruction. The bowel preparation usedwas bisacodyl tablets via split dose instruction. The scope was passed under direct vision. The Pediatric Colonoscope PCF-H190L [id number] was introducedthrough the anus and advanced to the the cecum, identifiedby appendiceal orifice and ileocecal valve. Thequality of the bowel preparation was good. Bowel prep was administered using a split dose. Findings: The perianal and digital rectal examinations were normal. The cecum appeared normal. A the small and benign 4 mm polyp was found in the proximal ascending colon. The polyp was flat. The polyp was removed with a jumbo cold forceps. Resection and retrieval were complete. The descending colon and transverse colon appeared normal. Many medium-mouthed diverticula were found in the sigmoid colon. Internal hemorrhoids were found during retroflexion. The hemorrhoids were small. Electronically signed by Alissa Moses M.D. Alissa Moses M.D. 01/11/2022 9:21:42 AM Number of Addenda: 0 Note Initiated On: 01/11/2022 7:27 AM Procedure Code(s): --- Professional --- 23178, Colonoscopy, flexible; with biopsy, single or multiple Diagnosis Code(s): --- Professional --- Z12.11, Encounter for screening for malignant neoplasm of colon Z80.0, Family history of malignant neoplasm of digestive organs K64.8, Other hemorrhoids D12.2, Benign neoplasm of ascending colon K57.30, Diverticulosis of large intestine without perforation orabscess without bleeding CPT copyright 2020 [employer]. All rights reserved. The codes documented in this report are preliminary and upon office automation technician reviewmay be revised to meet current compliance requirements. Recognized by the [employer] for promoting quality in endoscopy Alissa Moses MD ENDOSCOPY PROCEDURES Final Result from Last 3 Months or Most Recently Relevant to Health Maintenance Insurance [facility] [place] [id number] [facility] MEDICARE ADVANTAGE MEDICARE ADVANTAGE MEDICARE ADVANTAGE Advance Directives For more information, please contact: [phone] * Full Code (Latest Code Status on File) Date Activated Date Inactivated Comments 01/11/2022 7:26 AM 01/11/2022 2:03 PM Care Teams Chair Pad Maker Relationship Specialty Start Date End Date Eb Cota MD PCP - General 07/16/06
--- OUTSIDE RECORDS SUMMARY | 2025-03-04 18:14 | XMS_ITS | Clinical Summary ---
Author Organization [facility] City Voice Address [address] [place] [address] Care Team Providers Care Paint Factory Worker Name Role Phone Eb Cota MD Primary Care Provider Fran Cartagena MD Unavailable [phone] Eb Cota MD Unavailable [phone] Sintia Luna MD Unavailable [phone] Source Comments [facility],non-owned Affiliates and Associated Physician Practices is amultiple site organization consisting of ambulatory clinics and hospital sitesin [place], [place], [place] and [place]. This disclosure is being madepursuant to the Care Everywhere program and may not contain all information available regarding this patient. Last updated 18.[facility] Allergies Active Allergy Reactions Criticality Noted Date Comments Meperidine Nausea and/or Vomiting,Other Medium 014 hypotension Diphenhydramine Diarrhea Low 10/16/2023 Gnp Poison Shae-Barco Itching,Photosensiti vity,Rash ,Swelling Medium 01/11/2021 Shellfish Allergy Itching,Nausea and/o r Vomiting,Swelling Medium 05/21/2014 Medications * This document contains information received from the source organization and may not represent a complete record from that organization. * Be aware that medications may not be up to date on this document. Alwaysverify current medications with the patient. fexofenadine (Yoli Allergy) 180 MG tablet Take 1 (one) tablet by mouth once daily 90 tablet 3 4 Active sertraline (Zoloft) 25 MG tabletIndications :Major depressive disorder, single episode in full remission Take 1 (one) tablet by mouth once daily 90 tablet 3 4 Active fluticasone propionate (Flonase) 50 MCG/ACT nasal sprayIndications: Nasal Signs and Symptoms Kelford 2 (two) sprays into each nostril once daily Reasons: Signs and Symptoms of Nose Diseases 48 g 3 4 Active albuterol HFA (Proventil; Ventolin; Proair) 108 (90 Base) MCG/ACT inhaler Inhale 2 (two) puffs by mouth every 6 hours as needed for Wheezing or Cough 54 g 1 5 Active celecoxib (CeleBREX) 200 MG capsule Take 1 (one) capsule by mouth once daily 30 capsule 5 Active zolpidem (Ambien) 5 MG tabletIndications :Insomnia, unspecified type Take 1 (one) tablet by mouth nightly as needed for Insomnia 30 tablet 3 5 Active nitrofurantoin monohyd macro crystals (Macrobid) 100 MG capsule Take 1 (one) capsule by mouth 2 times daily with morning and evening meal 14 capsule 5 Active amphetamine-dextr oamphetamine XR 24hr (Adderall XR) 15 MG capsuleIndication s:Attention deficit hyperactivity disorder (ADHD), unspecified ADHD type Take 1 (one) capsule by mouth once daily 30 capsule 5 Active HYDROcodone-aceta minophen (Ashton) 5-325 MG tabletIndications :Chronic midline low back pain without sciatica Take 1 (one) tablet by mouth 2 times daily 30 tablet 5 Active amphetamine-dextr oamphetamine XR 24hr (Adderall XR) 15 MG capsuleIndication s:Attention deficit hyperactivity disorder (ADHD), unspecified ADHD type Take 1 (one) capsule by mouth once daily 30 capsule 5 02/09/20 25 Discontin ued(Reord er) HYDROcodone-aceta minophen (Ashton) 5-325 MG tabletIndications :Chronic midline low back pain without sciatica Take 1 (one) tablet by mouth 2 times daily 30 tablet 5 02/14/20 25 Discontin ued(Reord er) HYDROcodone-aceta minophen (Ashton) 5-325 MG tabletIndications :Chronic midline low back pain without sciatica Take 1 (one) tablet by mouth 2 times daily 30 tablet 03/03/20 25 Discontin ued(Reord er) Active Problems Problem Noted Date Diagnosed Date Osteopenia of multiple sites 09/23/2024 Overview (09/23/2024): DEXA 03/2019 Assessment & Plan (09/23/2024 2:56 PM CDT): Check dexa IGT (impaired glucose tolerance) 09/05/2024 Overview (09/23/2024): Fair diet- exercise limited Assessment & Plan (09/23/2024 2:46 PM CDT): Check labs Colon polyp 01/11/2022 Overview (01/11/2022): Colonoscopy 12/2021 Chronic midline low back pain without sciatica 1 05/25/2018 Overview (10/16/2023): Daily norco, walking almost daily- more hip pain Assessment & Plan (09/23/2024 2:45 PM CDT): Try adding celebrex Assessment & Plan (10/16/2023 11:58 AM CDT): Continue daily- await orthopedics evaluation Assessment & Plan (06/08/2022 11:11 AM LINE PAINTING MACHINE OPERATOR): Continue daily percocet Assessment & Plan (03/25/2019 1:55 PM LINE PAINTING MACHINE OPERATOR): Continue current medication. Consider pain clinic Major depressive disorder, w ith single episode, in full remission Overview (10/16/2023): Doing well with zoloft - stress with husbands illness Assessment & Plan (09/23/2024 2:43 PM CDT): Continue zoloft Assessment & Plan (10/16/2023 11:55 AM CDT): Continue zoloft Assessment & Plan (06/08/2022 11:10 AM LINE PAINTING MACHINE OPERATOR): Lower cymbalta to 20 mg Assessment & Plan (12/08/2021 2:28 PM CDT): Continue cymbalta- consider increasing Assessment & Plan (07/18/2021 11:21 AM LINE PAINTING MACHINE OPERATOR): Try cymbalta, titrate up as needed Assessment & Plan (01/11/2021 11:05 AM CDT): Continue current medication Assessment & Plan (06/15/2020 11:15 AM LINE PAINTING MACHINE OPERATOR): Continue current medication. May increase ambien to 10 mg occasionally Assessment & Plan (12/04/2019 11:22 AM CDT): Continue current medication. Assessment & Plan (03/25/2019 1:53 PM LINE PAINTING MACHINE OPERATOR): Increase to 100 mg qd Assessment & Plan (02/14/2018 1:34 PM CDT): Continue current medication. Assessment & Plan (07/20/2016 2:54 PM LINE PAINTING MACHINE OPERATOR): Continue current medication. Assessment & Plan (12/17/2015 11:50 AM CDT): Continue current medication. Assessment & Plan (04/06/2015 2:58 PM LINE PAINTING MACHINE OPERATOR): Continue current medication. Assessment & Plan (08/28/2014 2:54 PM CDT): Continue current med/dose. Assessment & Plan (01/16/2014 2:04 PM CDT): Continue current med/dose. Assessment & Plan (06/12/2013 1:13 PM LINE PAINTING MACHINE OPERATOR): Refill zoloft. Insomnia Overview (01/11/2021): Better with ambien No help with benadryl, melatonin, trazodone, amitriptyline. Assessment & Plan (09/23/2024 2:44 PM CDT): Continue ambien Assessment & Plan (10/16/2023 11:56 AM CDT): Continue ambtonio, try skipping periodically Assessment & Plan (06/08/2022 11:10 AM LINE PAINTING MACHINE OPERATOR): continue ambien Assessment & Plan (12/08/2021 2:36 PM CDT): Continue prn ambien Assessment & Plan (07/18/2021 11:16 AM LINE PAINTING MACHINE OPERATOR): Continue prn ambien, try 1/2 tab weekly Assessment & Plan (01/11/2021 11:06 AM CDT): Continue ambien Assessment & Plan (06/15/2020 11:16 AM LINE PAINTING MACHINE OPERATOR): As above, can use 10 mg dose periodically Assessment & Plan (12/04/2019 11:30 AM CDT): Increase ambien to 5 mg alternate 10 mg Assessment & Plan (02/14/2018 1:34 PM CDT): Continue current medication. Assessment & Plan (07/20/2016 2:54 PM LINE PAINTING MACHINE OPERATOR): Continue current medication. Assessment & Plan (08/28/2014 2:53 PM CDT): Continue current med/dose. Assessment & Plan (01/16/2014 2:04 PM CDT): Stress related, continue prn ambien. Assessment & Plan (06/12/2013 1:13 PM LINE PAINTING MACHINE OPERATOR): Refill ambien. ADD (attention deficit disorder) Overview (12/08/2021): Doing well with adderal. No insomnia/loss of apettite. Assessment & Plan (09/23/2024 2:44 PM CDT): Continue adderall as needed Assessment & Plan (10/16/2023 11:56 AM CDT): Continue adderall Assessment & Plan (06/08/2022 11:10 AM LINE PAINTING MACHINE OPERATOR): Continue aderall Assessment & Plan (12/08/2021 2:29 PM CDT): Continue adderaL Assessment & Plan (07/18/2021 11:17 AM LINE PAINTING MACHINE OPERATOR): Continue adderall Assessment & Plan (01/11/2021 11:05 AM CDT): Continue adderall Assessment & Plan (06/15/2020 11:15 AM LINE PAINTING MACHINE OPERATOR): Continue current medication. Assessment & Plan (12/04/2019 11:22 AM CDT): Continue current medication. Assessment & Plan (03/25/2019 1:53 PM LINE PAINTING MACHINE OPERATOR): Continue current medication. Assessment & Plan (02/14/2018 1:34 PM CDT): Continue current medication. Assessment & Plan (07/20/2016 2:54 PM LINE PAINTING MACHINE OPERATOR): Continue current medication. Assessment & Plan (08/28/2014 2:54 PM CDT): Continue current med/dose. Assessment & Plan (01/16/2014 2:04 PM CDT): Continue current med/dose. Assessment & Plan (06/12/2013 1:14 PM LINE PAINTING MACHINE OPERATOR): Refill adderal. Encounters Date Type Department Care Team Description 03/03/2025 Refill [facility] Internal Medicine [address] [place] [phone] Eb Cota MD MEDICATION REFILL 02/13/2025 Refill [facility] Internal Medicine [address] [place] [phone] Eb Cota MD MEDICATION REFILL 02/08/2025 Refill [facility] Internal Medicine [address] [place] [phone] Eb Cota MD MEDICATION REFILL 01/24/2025 Refill [facility] Internal [address] [address] Eb Cota MD MEDICATION REFILL 01/17/2025 Results Follow-Up [facility] Internal Medicine [address] [place] [phone] Eb Cota MD 01/06/2025 Refill [facility] Internal Medicine [address] [place] [phone] Eb Cota MD MEDICATION REFILL 12/30/2024 Refill [facility] Internal Medicine [address] [place] [phone] Eb Cota MD MEDICATION REFILL 12/28/2024 Refill [facility] Internal Medicine [address] [place] [address] [phone] Eb Cota MD MEDICATION REFILL 12/24/2024 Refill [facility] Internal Medicine [address] [place] [phone] Eb Cota MD MEDICATION REFILL 12/10/2024 Refill [facility] Internal Medicine [address] [place] [phone] Eb Cota MD MEDICATION REFILL from Last 3 Months Immunizations Immunization Administration Dates Next Due Covid Moderna primary monova lent 12+ yr 0.5mL 07/08/2021,08/17/2020,06/30/2020 INFLUENZA VACCINE 01/26/2022,,08/12/2018,2016,03/14/2013 INFLUENZA VACCINE, ADJUVANTE D, QUADR. (FLUAD QUADRIVALENT; 65Y+) (AIIV4) 03/27/2023,06/08/2022 INFLUENZA VACCINE, ADJUVANTE D, TRIV. (FLUAD TRIVALENT; 65Y+) (AIIV3) 05/31/2024 INFLUENZA VACCINE, HIGH-DOSE , QUADR. (FLUZONE HIGH-DOSE QUADRIVALENT; 65Y+), 0.7 ML (HD-IIV4) 04/19/2017 INFLUENZA VACCINE, HIGH-DOSE , TRIV. (FLUZONE HIGH-DOSE TRIVALENT; 65Y+) (HD-IIV3) 04/19/2017 INFLUENZA VACCINE, QUADR. (A FLURIA, FLUZONE QUADRIVALENT; 6MO+) (IIV4) 04/06/2015 INFLUENZA VACCINE, QUADR. (F LUZONE; FLULAVAL; FLUARIX; AFLURIA QUADRIVALENT; 6MO+), 0.5 ML (IIV4) 03/25/2019 PNEUMOCOCCAL PCV20 CONJ VAC IM 06/08/2022 PNEUMOCOCCAL PPSV23 07/20/2016 Pneumococcal Pcv13 Conj 07/01/2015 TDAP (7yrs+) 06/05/2011,05/14/2010 Family History Medical History Relation Name Comments Cancer - Ovarian Daughter Cancer - Breast Mother Cancer Other 1 1st pat cousin breast Cancer - Breast Other 1 1st pat cousin Cancer Other 2 ovarian Diabetes Other 3 Relation Name Status Comments Daughter Mother Other 1 1st pat cousin Alive Other 2 Other 3 Social History Tobacco Use Types Packs/Day Years Used Date Smoking Tobacco: Never Smokeless Tobacco: Never Tobacco Cessation:Counseling Given: Not Answered Alcohol Use Standard Drinks/Week Comments Yes 0 (1 standard drink = 0.6 oz pur e alcohol) Once a year, maybe PHQ-2 Answer Date Recorded Patient Health Questionnaire-2 Score 2 09/22/2024 Comments No Sex and Gender Information Value Date Recorded Sex Assigned at Female 05/13/2020 3:06 AM LINE PAINTING MACHINE OPERATOR Legal Sex Female 3:23 PM LINE PAINTING MACHINE OPERATOR Gender Identity Female 03/11/2019 2:02 PM CDT Sexual Orientation Straight 05/13/2020 3: 06 AM LINE PAINTING MACHINE OPERATOR Last Filed Vital Signs Vital Sign Reading Time Taken Comments Blood Pressure 130/80 09/23/2024 2:57 PM CDT Pulse 82 09/23/2024 2:37 PM CDT Temperature 36.3 C (97.3 F) 04/10/2023 10:25 AM LINE PAINTING MACHINE OPERATOR Respiratory Rate 16 09/06/2017 2:14 PM CDT Oxygen Saturation 97% 09/23/2024 2:37 PM CDT Inhaled Oxygen Concentration - - Weight 76.7 kg (169 lb) 09/23/2024 2:37 PM CDT Height 158.1 cm (5' 2.25) 09/23/2024 2:37 PM CD T Body Mass Index 30.66 09/23/2024 2:37 PM CDT Plan of Treatment Upcoming Encounters Date Type Department Care Team (Late st Contact Info) Description 10/06/2025 1:00 PM CDT Office Visit [facility] - Internal Medicine [address] [facility] [address] [place] [phone] Eb Cota MD [address] [place] [address] [address] [place] [phone] Health Maintenance Due Date Last Done Comments COLOGUARD (AGES 45-75) - COLON CA SCREENING 1950 CT COLONOGRAPHY - COLON CA SCREENING 1950 FIT - COLON CA SCREENING 1950 FLEX SIG - COLON CA SCREENING 1950 Opioid Medication Urine Drug Screening 1950 ZOSTER VACCINE (1 of 2) 12/10/2001 Respiratory Syncytial Virus (RSV) Vaccine Pt: or over 60 yrs (1 - Risk 60-74 years 1-dose series) 2011 DTAP/TDAP/TD VACCINES (3 - Td or Tdap) 06/05/2021 06/05/2011, 05/14/2010 COVID-19 VACCINE (4 - season) 2025 07/08/2021, 08/17/2020, 06/30/2020 INFLUENZA VACCINE (#1) 2025 , 03/27/2023, 06/08/2022, Additional history exists MAMMOGRAM 07/19/2025 07/19/2024, 12/2024, 07/19/2024, Additional history exists Opioid Medication Agreement - Annual 09/23/2025 09/23/2024 LIPID TESTING 09/23/2029 09/23/2024, 08/13, 03/27/2023, Additional history exists COLON MONITORING 01/12/2032 01/11/2022, 01/11/2022 COLONOSCOPY - COLON CA SCREENING 01/12/2032 01/11/2022, 01/11/2022, 05/14/2011 Colorectal Cancer Screening 01/12/2032 BONE DENSITY TESTING Completed 03/25/2019 HEPATITIS C SCREENING Completed 03/25/2019 PNEUMOCOCCAL VACCINE 50+ Completed 023, 07/20/2016, 07/01/2015 DEPRESSION SCREENING Completed 09/05/2024, 10/16/2023, 04/10/2023, Additional history exists MEDICARE AWV CALENDAR YEAR Completed 09/05/2024, 04/10/2023, 06/15/2020 HEPATITIS B VACCINE Aged Out No longe r eligible based on patient's age to complete this topic HIB VACCINE Aged Out No longer eligi ble based on patient's age to complete this topic HPV VACCINE Aged Out No longer eligi ble based on patient's age to complete this topic MENINGOCOCCAL (Group B) VACCINE SHARED DECISION-MAKING Aged Out No longer eligible based on patient's age to complete this topic MENINGOCOCCAL GROUPS A/C/Y/W VACCINE Aged Out No longer eligible based on patient's age to complete this topic Goals Goal Patient Goal Type Associated Problems Recent Progress Patient-Stated? Author Exercise 5X per week (30 min per time) Exercise No Eb Cota MD Procedures Procedure Name Priority Date/Time Associated Diagnosis Comments URINALYSIS W/MICROSCOPIC REFLEX TO CULTURE Routine 01/15/2025 2:22 PM CDT Dysuria LIPID PROFILE Routine 09/23/2024 3:12 PM CDT Mixed hyperlipidemia SCAN ONLY HIS OPIOID MED AGREEMENT 09/23/2024 MAMMO BILAT SCREENING W GIO Routine 07/19/2024 Screening mammogram for breast cancer COLONOSCOPY 01/11/2022 HEPATITIS C ANTIBODY W RFLX PCR Routine 03/25/2019 3:13 PM LINE PAINTING MACHINE OPERATOR Need for hepatitis C screening test DEXA BONE DENSITY AXIAL SKELETON Routine 03/25/2019 2:59 PM LINE PAINTING MACHINE OPERATOR Menopause from Last 3 Months or Most Recently Relevant to Health Maintenance Results * (ABNORMAL) URINALYSIS W/MICROSCOPIC REFLEX TO CULTURE (01/15/2025 2:22 PM CDT) Specific [place] UA 1.007 1.005 - 1.030 [facility] ACCOUNT BILL pH UA 7.0 5.0 - 7.5 [facility] ACCOUNT BILL Color UA Yellow Yellow [facility] ACCOUNT BILL Appearance Clear Clear [facility] ACCOUNT BILL Leukocyte UA 2+(A) Negative [facility] ACCOUNT BILL Protein UA Negative Negative/Tr gisele [facility] ACCOUNT BILL Glucose UA Negative Negative [facility] ACCOUNT BILL Ketone UA Negative Negative [facility] ACCOUNT BILL Occult Blood Urine Trace(A) Negative [facility] ACCOUNT BILL Bilirubin UA Negative Negative [facility] ACCOUNT BILL Urobilinogen 0.2 0.2 - 1.0 mg/dL [facility] ACCOUNT BILL Nitrite UA Negative Negative [facility] ACCOUNT BILL Microscopic Examination Urine See below: [facility] ACCOUNT BILL Comment:Microscopic was sukh cated and was performed. Urinalysis Reflex Comment [facility] ACCOUNT BILL Comment: This specimen has reflexed to a Urine Culture. Performed at: [address] [place] [address], [place], [place] [id number] Box Estimator: Catarino Corbett PhD, Phone: [phone] WBC UA 6-10(A) 0 - 5 /hpf [facility] ACCOUNT BILL RBC UA 3-10(A) 0 - 2 /hpf [facility] ACCOUNT BILL Epithelial Cells (non renal) 0-10 0 - 10 /hpf [facility] ACCOUNT BILL Casts ua None seen None seen /lpf [facility] ACCOUNT BILL Bacteria UA None seen None seen/Few [facility] ACCOUNT BILL Comment: Performed at: - [address] [id number] Box Estimator: Catarino Corbett PhD, Phone: [phone] Urine Culture Routine Final report(A) [facility] ACCOUNT BILL Result 1 Escherichia coli(A) [facility] ACCOUNT BILL Comment: Cefazolin with an MAKAYLA <=16 predicts susceptibility to the oral agents cefaclor, cefdinir, cefpodoxime, cefprozil, cefuroxime, cephalexin, and loracarbef when used for therapy of uncomplicated urinary tract infections due to E. coli, Klebsiella pneumoniae, and Proteus mirabilis. 25,000-50,000 colony forming units per mL Antimicrobial Susceptibility Comment [facility] ACCOUNT BILL Comment: S = Susceptible; I = Intermediate; R = Resistant P = Positive; N = Negative MICS are expressed in micrograms per mL Antibiotic RSLT#1 RSLT#2 RSLT#3 RSLT#4 Amoxicillin/Clavulanic Acid S Ampicillin R Cefazolin S Cefepime S Cefoxitin S Cefpodoxime S Ceftriaxone S Ciprofloxacin S Ertapenem S Gentamicin S Levofloxacin S Meropenem S Nitrofurantoin S Piperacillin/Tazobactam S Tetracycline S Tobramycin S Trimethoprim/Sulfa S Urine MID-STREAM URINE SPECIMEN / Unknown 01/15/2025 2:22 PM CDT 01/15/2025 Narrative [facility] ACCOUNT BILL - 01/18/2025 8:06 PM CDT Performed at: [address] [id number] Box Estimator: Catarino Corbett PhD, Phone: [phone] us Eb Cota MD LAB - URINALYSIS ORDERABLES Final Result [facility] ACCOUNT BILL [address] [place] [address] * LIPID PROFILE (09/23/2024 3:12 PM CDT) Cholesterol 182 100 - 199 mg/dL [facility] ACCOUNT BILL Triglycerides 114 0 - 149 mg/dL [facility] ACCOUNT BILL HDL Cholesterol 64 >39 mg/dL [facility] ACCOUNT BILL VLDL Calculated 20 5 - 40 mg/dL [facility] ACCOUNT BILL LDL Calculated 98 0 - 99 mg/dL [facility] ACCOUNT BILL Blood BLOOD SPECIMEN / Unknown 09/23/2024 3:12 PM CDT 09/23/2024 Narrative [facility] ACCOUNT BILL - 09/24/2024 8:11 AM CDT Performed at: 01 - [address] [id number] Box Estimator: Catarino Corbett PhD, Phone: [phone] us Italia Sandoval TALENT ACQUISITION OPERATIONS MANAGER-WATER TREATMENT PLANT REPAIRER LAB - CHEMISTRY ORD ERABLES Final Result Performing Organization Address City/[facility]/ZIP Co de Phone Number [facility] ACCOUNT BILL [address] [place] [address] * SCAN ONLY HIS OPIOID MED AGREEMENT (09/23/2024) 09/23/2024 Narrative 09/23/2024 Ordered by an unspecified provider. us Scanned Document SCANNING ONLY Final Result * Mammo BILAT Screening W/ GIO ([facility] Imaging Order) (07/19/2024) Anatomical Region Laterality Modality Breast Bilateral Mammography 07/19/2024 us Eb Cota MD MAMMO ORDERABLES Final Resul t * COLONOSCOPY (01/11/2022) 01/11/2022 Narrative 01/11/2022 Ordered by an unspecified provider. us Scanned Document SCANNING ONLY Final Result * HEPATITIS C ANTIBODY W RFLX PCR (03/25/2019 3:13 PM LINE PAINTING MACHINE OPERATOR) Hepatitis C Antibody <0.1 0.0 - 0.9 s/co ratio [facility] INSURANCE BILL Blood BLOOD SPECIMEN / Unknown 03/25/2019 3:13 PM LINE PAINTING MACHINE OPERATOR 03/25/2019 Narrative Resulting Agency Comment Lab Testing performed at: [facility] [address] [phone] us Eb Cota MD LAB - CHEMISTRY ORDERABLES F inal [facility] [address] [place] [address] * DEXA BONE DENSITY AXIAL SKELETON (03/25/2019 2:59 PM LINE PAINTING MACHINE OPERATOR) Anatomical Region Laterality Modality Mammography 03/25/2019 3:02 PM LINE PAINTING MACHINE OPERATOR Narrative 03/25/2019 3:06 PM LINE PAINTING MACHINE OPERATOR BONE DENSITY STUDY (DEXA) HISTORY: Post menopausal. COMPARISON: No priors FINDINGS/ IMPRESSION: LUMBAR SPINE (L1-L4): Severe osteopenia . Bone mineral density (g/cm2): 0.943 T-score: -2.0 Z-score: -0.9 LEFT FEMORAL NECK: Severe osteopenia. Bone mineral density (g/cm2): 0.731 T-score: -2.2 Z-score: -1.0 Please see the PACS images for additional details. World Health Organization definitions of standard deviations relative to the mean T-score: Normal bone density = -1.0 and above Mild osteopenia = -1.0 to -1.5 Moderate osteopenia = -1.5 to -2.0 Severe osteopenia = -2.0 to -2.5 Osteoporosis = -2.5 and below [facility]: [employer] Reading Radiologist: Fatmata Laboy MD on 03/25/2019 at 3:06 PM Procedure Note Fatmata Laboy MD - 03/25/2019 BONE DENSITY STUDY (DEXA) HISTORY: Post menopausal. COMPARISON: No priors FINDINGS/ IMPRESSION: LUMBAR SPINE (L1-L4): Severe osteopenia . Bone mineral density (g/cm2): 0.943 T-score: -2.0 Z-score: -0.9 LEFT FEMORAL NECK: Severe osteopenia. Bone mineral density (g/cm2): 0.731 T-score: -2.2 Z-score: -1.0 Please see the PACS images for additional details. World Health Organization definitions of standard deviations relative to the mean T-score: Normal bone density = -1.0 and above Mild osteopenia = -1.0 to -1.5 Moderate osteopenia = -1.5 to -2.0 Severe osteopenia = -2.0 to -2.5 Osteoporosis = -2.5 and below [facility]: [employer] Reading Radiologist: Fatmata Laboy MD on 03/25/2019 at 3:06 PM Eb Cota MD DEXA ORDERABLES Final Result from Last 3 Months or Most Recently Relevant to Health Maintenance Insurance [facility] MANAGED MEDICARE ADV Advance Directives Documents on File Type Date Recorded Patient Admitted Attorneys Expl anation Adv Directive/Living Will/POA 04/10/2023 10:58 AM Healthcare POA Care Teams Paint Factory Worker Relationship Specialty Start Date End Date Eb Cota MD [address] [facility] [address] [place] [address] PCP - General Internal Medicine 06/12/13 Eb Cota MD [address] [facility] [address] [place] [address] PCP - Attributed-[facility] 08/13/23 Fran Cartagena MD [address] [facility] [address] [place] [address] Orthopedic 03/25/19 Sintia Luna MD [address] [place] [address] Pain Management Pain Medicine 09/23/24
--- OUTSIDE RECORDS SUMMARY | 2025-03-04 18:14 | XMS_ITS | Encounter Summary ---
Author Organization [facility] [place] Address [address] [place] [address] Care Team Providers Care Residential Program Director Name Role Phone Eb Cota MD Primary Care Provider [phone] Fran Cartagena MD Unavailable [phone] Eb Cota MD Unavailable [phone] Lyubov Diehl MA Unavailable [phone] Priscilla Holman MA Unavailable [phone] Priscilla Holman MA Unavailable [phone] Sintia Luna MD Unavailable Reason for Visit * Reason Onset Date Comments Medicare Subsequent Annual Wellness Visit 2023 Left message Encounter Details Date Type Department Care Team (Late st Contact Info) Description 01/09/2024 Telephone [facility] [place] [facility] - Internal Medicine [address] [address] Eb Cota MD [address] [place] [address] [address] [place] [address] Medicare Subsequent Annual Wellness Visit (Left message) Social History Tobacco Use Types Packs/Day Years Used Date Smoking Tobacco: Never Smokeless Tobacco: Never Alcohol Use Standard Drinks/Week Comments Yes 0 (1 standard drink = 0.6 oz pur e alcohol) Once a year, maybe PHQ-2 Answer Date Recorded Patient Health Questionnaire-2 Score 0 10/16/2023 Comments No Sex and Gender Information Value Date Recorded Sex Assigned at Female 05/13/2020 3:06 AM FAMILY MEMBER CARETAKER Legal Sex Female 3:23 PM FAMILY MEMBER CARETAKER Gender Identity Female 03/11/2019 2:02 PM CDT Sexual Orientation Straight 05/13/2020 3: 06 AM FAMILY MEMBER CARETAKER documented as of this encounter Plan of Treatment Upcoming Encounters Date Type Department Care Team (Late st Contact Info) Description 10/06/2025 1:00 PM CDT Office Visit [facility] - Internal Medicine [address] [place] [address] [place] [address] [id number] Eb Cota MD [address] [place] [address] [address] [place] [address] documented as of this encounter Goals Goal Patient Goal Type Associated Problems Recent Progress Patient-Stated? Author Exercise 5X per week (30 min per time) Exercise No Eb Cota MD documented as of this encounter Visit Diagnoses Not on filedocumented in this encounter Care Teams Residential Program Director Relationship Specialty Start Date End Date Eb Cota MD [address] [place] [address] [address] [place] [address] PCP - General Internal Medicine 06/12/13 Eb Cota MD [address] [place] [address] [address] [place] [address] PCP - [facility] 08/13/23 Fran Cartagena MD [address] [facility] [address] [place] [address] Orthopedic 03/25/19 Lyubov Diehl MA Care Coordination Specialist Care Management 12/05/23 01/19/24 Priscilla Holman MA Care Coordination Specialist 03/26/24 05/10/24 Priscilla Holman MA Care Coordination Specialist 06/19/24 08/03/24 Sintia Luna MD [address] [place] [address] Pain Management Pain Medicine 09/23/24 documented as of this encounter
--- OUTSIDE RECORDS SUMMARY | 2025-03-04 18:14 | XMS_ITS | Encounter Summary ---
Author Organization [facility] Address [address] [facility] [place] [address] Care Team Providers Care Synthetic Resin Operator Name Role Phone Eb Cota MD Primary Care Provider Fran Cartagena MD Unavailable [phone] Eb Cota MD Unavailable [phone] Eb Cota MD Unavailable [phone] Lyubov Diehl MA Unavailable [phone] Priscilla Holman MA Unavailable [phone] Priscilla Holman MA Unavailable [phone] Sintia Luna MD Unavailable Reason for Visit * Reason Onset Date Comments MEDICATION REFILL 09/02/2023 Encounter Details Date Type Department Care Team (Late st Contact Info) Description 09/02/2023 Refill [facility] - Internal Medicine [address] [address] Eb Cota MD [address] [place] [id number] MEDICATION REFILL Social History Tobacco Use [...] Sex Assigned at Female 05/13/2020 3:06 AM SURVEYING TEACHER Legal Sex Female 3:23 PM SURVEYING TEACHER Gender Identity Female 03/11/2019 2:02 PM CDT Sexual Orientation Straight 05/13/2020 3: 06 AM SURVEYING TEACHER documented as of this encounter Miscellaneous Notes * Telephone Encounter - Cira Ba RN - 09/03/2023 2:14 PM CDT MEDICATION FILLED PER PROTOCOL Last Office Visit with PCP: 06/08/2022 Last Video Visit with PCP: 07/18/2021 Next Appointment with PCP: Visit date not found Follow-up: 6 months Disposition of prescription: Defer to PCP --------- CONTROLLED MEDICATION REFILL REQUEST Medication: Requested Prescriptions Pending Prescriptions Disp Refills ??? fluticasone propionate (Flonase) 50 MCG/ACT nasal spray 48 g 3 Sig: [place] 2 (two) sprays into each nostril once daily Reasons: Signs and Symptoms of Nose Diseases ??? HYDROcodone-acetaminophen ([place]) 5-325 MG tablet 30 tablet 0 Sig: Take 1 (one) tablet by mouth 2 times daily Last Office Visit with PCP: 06/08/2022/Olga 04/10/2023 AMW and chronic conditions Last Video Visit with PCP: 07/18/2021 Next Appointment with PCP: Visit date not found Follow-up: 6 months-scheduled with Olga 09/10/2023 Date of last refill: 08/20/2023 documented in this encounter Plan of Treatment Upcoming Encounters Date Type Department Care Team (Late st Contact Info) Description 10/06/2025 1:00 PM CDT Office Visit [facility] - Internal Medicine [address] [facility] [address] [place], [place] [id number] Eb Cota MD [address] [place] [address] [address] [place] [address] documented as of this encounter Goals Goal Patient Goal Type Associated Problems Recent Progress Patient-Stated? Author Exercise 5X per week (30 min per time) Exercise No Eb Cota MD documented as of this encounter Visit Diagnoses Diagnosis Chronic midline low back pain without sciatica documented in this encounter Care Teams Synthetic Resin Operator Relationship Specialty Start Date End Date Eb Cota MD [address] [place] [address] [address] [place] [phone] PCP - General Internal Medicine 06/12/13 Eb Cota MD [address] [place] [phone] PCP - Attributed-[facility] JAIME 08/13/23 Eb Cota MD [address] [place] [address] [address] [place] [phone] PCP - Attributed-[facility] JAIME GU P4P 08/13/23 10/24/23 Fran Cartagena MD [address] [facility] [address] [place] [address] Orthopedic 03/25/19 Lyubov Diehl MA Care Coordination Specialist Care Management 12/05/23 01/19/24 Priscilla Holman MA Care Coordination Specialist 03/26/24 05/10/24 Priscilla Holman MA Care Coordination Specialist 06/19/24 08/03/24 Sintia Luna MD [address] [place] [address] Pain Management Pain Medicine 09/23/24 documented as of this encounter
== END 2025-03-04 13:59 | disposition home or self-care (01) ==
LOC: ANHFOHIMG 14:11
DX: M85.89 Other specified disorders of bone density and structure, multiple sites (principal); M85.88 Other specified disorders of bone density and structure, other site; M85.852 Other specified disorders of bone density and structure, left thigh; M85.851 Other specified disorders of bone density and structure, right thigh
CPT/HCPCS: 77080